=== PATIENT | female | born 2000 | race Two or more races ===

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

== ENCOUNTER → 2019-01-18 | Outpatient (CLI) | payer MEDICAID | LOC: FIMAGING 11:34 | PROVIDERS: ATTEND Family Medicine | DX: O36.62X0 Maternal care for excessive fetal growth, second trimester, not applicable or unspecified (principal); O99.282 Endocrine, nutritional and metabolic diseases complicating pregnancy, second trimester; E03.9 Hypothyroidism, unspecified; Z3A.20 20 weeks gestation of pregnancy ==

== ENCOUNTER → 2019-05-23 | Outpatient (CLI) | payer MEDICAID | LOC: FIMAGING 14:40 ==